=== PATIENT | female | born 1945 | race African-American/Black ===

== ENCOUNTER 2018-09-19 06:10 | Day surgery (SDC) | payer OTHER, BC ==
[2018-09-18 13:55] VITALS: BMI 29.2
[2018-09-19] MEDS ORDERED: LIDOCAINE HCL 1%, 10 MG/ML (20ML VIAL) ONE (07:32)
[2018-09-19] MEDS ORDERED: MIDAZOLAM HCL 2 MG/2 ML SINGLE DOSE VIAL ONE ×2 (07:58)
[2018-09-19] MEDS ORDERED: SUCCINYLCHOLINE CHLORIDE 200 MG/10 ML SYRINGE ONE (08:05)
[2018-09-19] MEDS ORDERED: PROPOFOL 20 ML ONE ×2 (08:07)
[2018-09-19] MEDS ORDERED: LIDOCAINE HCL 1%, 10 MG/ML (20ML VIAL) INF ONE (08:27)
[2018-09-19] MEDS ORDERED: oxyCODONE HCL 5 MG TABLET PO PRN (09:16)
--- NOTE | 2018-09-19 09:16 | OP ---
Operative Note - Note: Operative Date: 09/19/18 Pre-Operative Diagnosis: Trigger Fingers Right Thumb and Index Fingers Operation: Trigger Releases Right Thumb and Index Fingers Post-Operative Diagnosis: Same as Pre-op Surgeon: Juvenal Freed Anesthesia: Fractional Operative Report Dictated: Yes
[2018-09-19 09:33] VITALS: TEMP 97.9
--- NOTE | 2018-09-19 10:29 | OP ---
DATE OF OPERATION: 09/19/2018 PREOPERATIVE DIAGNOSIS: Trigger fingers, right thumb and index. POSTOPERATIVE DIAGNOSIS: Trigger fingers, right thumb and index. PROCEDURE PERFORMED: Trigger released, right thumb and index fingers. SURGEON: Juvenal Freed MD ANESTHESIA: Fractional. PROCEDURE: The patient was on the operating room table in supine position with right arm on an arm table and a right upper arm tourniquet in place. The area of the right hand and forearm were then prepped and draped in the usual sterile fashion. The hand was elevated for 3 minutes and the require was then elevated to 200 mmHg. The location of the A1 pulleys were marked, and these areas were infiltrated with a solution of 1% plain lidocaine. The thumb was addressed first, and an incision within the distal palmar flexion crease at the base of the thumb was made approximately 1 cm in length. This incision was carried down through subcutaneous tissues and retractors were inserted. The tendon sheath was appreciated at the level of the A1 dilcia, and this was vertically incised. It was incised proximally and distally using a Littler scissor, and a fullness in the tendon was appreciated. Good tendon gliding was appreciated after release, and this area was irrigated with saline solution. A similar procedure was performed on the index finger. At the conclusion of both releases, the wounds were then closed using No. 5-0 nylon suture in interrupted horizontal mattress fashion. Complete release was confirmed with the patient's motion, and sterile dressings were applied. The patient was then taken from the operating room to the recovery room in satisfactory condition having tolerated the procedure well. Chadwick [id number]
[2018-09-19] MEDS ORDERED: ACETAMINOPHEN 325 MG TABLET (FP) PO ONE ×2 (10:50→10:56)
[2018-09-19 11:41] VITALS: BP 100/62; PULSE 74
== END 2018-09-19 11:30 | disposition home or self-care (01) ==
LOC: JASU-SURG 06:10
PROVIDERS: ATTEND Plastic Surgery
PROC: 0LN70ZZ Release Right Hand Tendon, Open Approach (ICD-10-PCS; 2018-09-19)
PROC: 0LN70ZZ Release Right Hand Tendon, Open Approach (ICD-10-PCS; principal; 2018-09-19 08:00)
DX: M65.311 Trigger thumb, right thumb (principal); M65.321 Trigger finger, right index finger; I10 Essential (primary) hypertension; K21.9 Gastro-esophageal reflux disease without esophagitis; E66.9 Obesity, unspecified